=== PATIENT | male | born 1945 | race Caucasian/White ===

== ENCOUNTER 2017-07-20 11:24 | Emergency (ER) | payer MEDICARE ==
--- NOTE | 2017-07-20 12:09 | UC ---
General HPI - HPI Summary HPI Summary: Pt brought in today by stating he has nt been feeling well for 2 days. Sx worse today and very cold and shaky today. has been feeling very weak, lightheaded adn dizzy. h/o AVR 3 yrs ago, s/p mitral valve surgery at [facility] 11/02 followed by pneumonia. has been on coumadin. h/o GI bleed w/ ASA in past. recent onset AFIB s/p cardioversion in the past 2-3 months. + h/o CKD stage 3, + anemia on iron. -INR was 2.2 5 days ago per . states he has regular OVs and lab work. -has had mild cough but not significant. no CP or SOB. denies dysuria, althuogh states he has had very little UOP past couple of days. he did drink a bottle of water today and 2 yesterday per . - History of Current Complaint Stated Complaint: COPD, SHAKEY, CONGESTION Time Seen by Provider: 07/20/17 11:58 - Allergy/Home Medications Allergies/Adverse Reactions: Allergies Allergy/AdvReac Type Severity Reaction Status Date / Time MIGUELITO Inhibitors Allergy Unknown Verified 07/20/17 11:49 Reaction Details Isoflavones Allergy Anaphylatic Verified 07/20/17 11:49 Shock PMH/Surg Hx/FS Hx/Imm Hx Previously Healthy: No Cardiovascular History: Cardiac Disease, Hypertension, Atrial Fibrillation GI/ History: Gastrointestional Bleed, Renal Disease Other History Of: Anticoagulant Therapy - Coumadin - Surgical History Surgical History: Yes Surgery Procedure, Year, and Place: Right coratid surgery 08/2015. Left coratid surgery 05/21/2016 - Family History Known Family History: Positive: Hypertension, Other Family History: Mother -- CVA - Social History Alcohol Use: Weekly Substance Use Type: None Smoking Status (MU): Former Smoker - Immunization History Most Recent Influenza Vaccination: 2013 Most Recent Tetanus Shot: unknown Most Recent Pneumonia Vaccination: 2011 Review of Systems Constitutional: Chills, Fatigue Skin: Negative Eyes: Negative ENT: Negative Respiratory: Cough Cardiovascular: Negative Gastrointestinal: Negative Genitourinary: Other - little UOP Motor: Negative Neurovascular: Negative Musculoskeletal: Negative Neurological: Weakness Psychological: Negative Is Patient Immunocompromised?: No All Other Systems Reviewed And Are Negative: Yes Physical Exam Triage Information Reviewed: Yes Completion Of Physical Exam Limited Due To: Extremis Appearance: Ill-Appearing, Other: - poor coloration, ha/dusky, cyanotic and very cold fingers Vital Signs Reviewed: Yes Eyes: Positive: Conjunctiva Clear Respiratory: Positive: Lungs clear, Decreased breath sounds Cardiovascular: Positive: Bradycardia, Other: - + II/ murmurs Abdomen Description: Positive: Nontender, Soft Bowel Sounds: Positive: Present Musculoskeletal: Positive: Other: - overall weakness Neurological: Positive: Alert, Lethargic, Other: - significant rigors Skin: Positive: Other - cyanotic - see above Course/Dx - Course Course Of Treatment: O2 difficultto assess. fingers cyanotic and cold. O2 68% on 4 LNC. -non-rebreather mask placed w/ 10L, O2 up to 88%. -BP 130s/30s. HR 40s. EKG w/ significant artifact d/t rigors, p waves present, bradycardia. - 20 Guage IV rt wrisrt NS wide open started. -911, ACLS. -pt very upset about going to ER, but agreeable. Understands recommendation for transporrt to closest facility which is [facility] d/t poor condition. - Differential Dx - Multi-Symptom Differential Diagnoses: Cardiac Ischemia, Metabolic Abnormality, Sepsis Provider Diagnoses: rigors, cyanosis, weakness, dizziness, hypotension, bradycardia - Physician Notifications Discussed Patient Care With: Anastacia Glasgow NP @ 12:05 who accepts pt Discharge - Discharge Plan Condition: Guarded Disposition: TRANS HIGHER LVL OF CARE FAC Referrals: Stephanie Velásquez MD [Primary Care Provider] -
[2017-07-20 12:23] VITALS: BP 131/33
[2017-07-20] MEDS ORDERED: NS 0.9% 1000 ML* 1,000 ML IV ONE (12:31)
== END 2017-07-20 12:56 | disposition short-term general hospital (02) ==
LOC: UCCORT 11:24
DX: R23.0 Cyanosis (principal); R68.89 Other general symptoms and signs; R53.1 Weakness; R42 Dizziness and giddiness; I95.9 Hypotension, unspecified; R00.1 Bradycardia, unspecified; I48.91 Unspecified atrial fibrillation; Z79.01 Long term (current) use of anticoagulants; I10 Essential (primary) hypertension; N28.9 Disorder of kidney and ureter, unspecified; Z87.891 Personal history of nicotine dependence
CPT/HCPCS: 93005; 99213; G0463